=== PATIENT | female | born 1965 | race Caucasian/White ===

== ENCOUNTER 2018-12-03 07:53 | Day surgery (SDC) | payer OTHER ==
--- NOTE | 2018-12-03 07:58 | HP ---
DATE OF SURGERY: 12/03/2018 ANTICIPATED PROCEDURE: Colonoscopy. HISTORY OF PRESENT ILLNESS: The patient is a 53 year-old requiring screening. PAST MEDICAL HISTORY: ALLERGIES: PENICILLIN. MEDICATIONS: None. PAST SURGICAL HISTORY: Trigger finger. REVIEW OF SYSTEMS: Negative. SOCIAL HISTORY: Negative. FAMILY HISTORY: Negative. PHYSICAL EXAMINATION: VITAL SIGNS: Normal. CHEST: Clear. COR: Regular. ABDOMEN: Satisfactory. IMPRESSION: Screening. PLAN: Colonoscopy.
[2018-12-03] MEDS ORDERED: Lactated Ringers 1,000 ML IV SCH (08:30)
[2018-12-03] MEDS ORDERED: Lactated Ringers 1,000 ML IV ONE (08:32)
[2018-12-03] MEDS ORDERED: DIPRIVAN 200 MG/20 ML IV ONE ×2 (09:47→10:02)
[2018-12-03] MEDS ORDERED: Ketamine HCl 50 MG/ML ONE (09:48)
[2018-12-03] MEDS ORDERED: ROBINUL ONE (10:03)
--- NOTE | 2018-12-03 10:54 | OP ---
SURGERY DATE/TIME: 12/03/2018 0953 PREOPERATIVE DIAGNOSIS: Screening. POSTOPERATIVE DIAGNOSIS: Normal. She does have a fairly large diameter and a fairly meandering colon. PROCEDURE: Colonoscopy complete to cecum. SURGEON: Erasmo Allen M.D. ANESTHESIA: MAC. COMPLICATIONS: None. CONDITION: Stable. INDICATION: A patient requiring screening. DESCRIPTION OF PROCEDURE: Taken to endoscopy. MAC sedation provided. Excellent anesthesia level was present. Anal digital examination satisfactory. Scope advanced up to the hepatic flexure fairly readily. A little patience with the hepatic flexure. Down the ascending, down to the base of cecum, base of the cecum, appendiceal orifice, ileocecal valve were all normal. Ascending, hepatic, transverse, splenic, descending. At the junction of the descending sigmoid there was an 8 mm slight mucosal rub did not appear to be an issue. Scope continued to be withdrawn. Sigmoid, rectum, anus satisfactory. IMPRESSION: Normal examination. PLAN: Follow up in ten years unless symptoms occur.
[2018-12-03 11:38] VITALS: BP 127/77; PULSE 68; O2SAT 97
== END 2018-12-03 11:30 | disposition home or self-care (01) ==
LOC: SDC 07:53
PROVIDERS: ATTEND Surgery
DX: Z12.11 Encounter for screening for malignant neoplasm of colon (principal)
CPT/HCPCS: J2704